=== PATIENT | male | born 1970 | race African-American/Black ===

== ENCOUNTER 2024-04-06 19:47 | Emergency (ER) | payer OTHER ==
[~2024-04-06] VITALS: Ht 180.3 cm; Wt 95.0 kg
[2024-04-06 21:29] LABS: BASOPHILS % (AUTO) 0.5 % (0.0-2.0); EOSINOPHILS % (AUTO) 3.1 % (1.0-6.0); HEMATOCRIT 42.4 % (41-53); LYMPHOCYTES # (AUTO) 1.8 K/uL (1.0-4.8); LYMPHOCYTES % (AUTO) 18.1 % (22.0-44.0); MEAN CORPUSCULAR HEMOGLOBIN 29.7 pg (26.0-34.0); MEAN CORPUSCULAR HGB CONC 33.1 G/dL (31.0-37.0); MEAN CORPUSCULAR VOLUME 90 fL (80-100); MONOCYTES # (AUTO) 0.8 K/uL (0.1-1.0); MONOCYTES % (AUTO) 7.5 % (2.0-9.0); NEUTROPHILS # (AUTO) 7.2 K/uL (1.8-7.7); NEUTROPHILS % (AUTO) 70.8 % (40.0-70.0); PLATELET COUNT (AUTO) 281 K/uL (150-450); RED BLOOD CELL COUNT(AUTO) 4.72 MIL/uL (4.50-5.90); RED CELL DISTRIBUTION WIDTH 14.2 % (11.5-14.5); WHITE BLOOD COUNT (AUTO) 10.1 K/uL (4.5-11.0)
[2024-04-06 21:31] LABS: APPEARANCE,URINE CLEAR (CLEAR); BILIRUBIN,URINE NEGATIVE (NEGATIVE); COLOR,URINE LIGHT YELLOW (YELLOW); GLUCOSE, URINE (UA) NEGATIVE (NEGATIVE); KETONES,URINE NEGATIVE (NEGATIVE); LEUKOCYTE ESTERASE ,URINE NEGATIVE (NEGATIVE); NITRATE,URINE NEGATIVE (NEGATIVE); OCCULT BLOOD,URINE SMALL (NEGATIVE); PH,URINE 5.5 (5.0-8.0); PROTEIN,URINE NEGATIVE (NEGATIVE); SPECIFIC GRAVITIY, URINE 1.018 (1.003-1.030); UROBILINOGEN,URINE <=1.0 mg/dL (<=1.0)
[2024-04-06 21:39] LABS: ANION GAP 7 mmol/L (8-16); CALCIUM, TOTAL 9.4 mg/dL (8.8-10.5); CARBON DIOXIDE 30 mmol/L (22-29); CHLORIDE 102 mmol/L (98-107); CREATININE 0.94 mg/dL (0.60-1.30); GLOMERULAR FILTR. RATE CALC > 60 mL/min (>60); GLUCOSE,RANDOM 94 mg/dL (70-110); POTASSIUM 3.5 mmol/L (3.5-5.1); SODIUM SERUM 139 mmol/L (136-145); UREA NITROGEN, BLOOD 9 mg/dL (7-18)
[2024-04-06 21:46] LABS: ALANINE AMINOTRANSFERASE 25 U/L (12-78); ALBUMIN 3.6 g/dL (3.4-5.0); ALKALINE PHOSPHATASE 63 U/L (46-116); ASPARTATE AMINOTRANSFERASE 21 U/L (15-37); BILIRUBIN,TOTAL 0.5 mg/dL (0.1-1.0); LIPASE 88 U/L (16-77); TOTAL PROTEIN, SERUM 6.9 g/dL (6.4-8.2)
[2024-04-06 22:05] LABS: BACTERIA,URINE Few /HPF (None Seen); MUCUS,URINE Few LPF (None Seen); RBC,URINE 0-2 /HPF (0-2); SQUAMOUS EPITHELIAL CELL,UR Few /LPF (None Seen); WBC,URINE 0-2 /HPF (0-5)
[2024-04-06] MEDS ORDERED: KETOROLAC TROMETHAMINE 30 MG/ML VIAL IVP ONE (22:30)
[2024-04-06] MEDS: FAMOTIDINE 20 MG/2 ML VIAL IVP ONE (23:32)
[2024-04-06] MEDS: SODIUM CHLORIDE 0.9% 1,000 ML IV ONE (23:32)
[2024-04-06] MEDS: KETOROLAC TROMETHAMINE 15 MG/ML VIAL IVP ONE (23:32)
[2024-04-06] MEDS: ONDANSETRON HCL 4 MG/2 ML VIAL IVP ONE (23:33)
[2024-04-06] MEDS ORDERED: IOHEXOL 350 MG/ML 100 ML VIAL ONE (23:56)
[2024-04-06] MEDS ORDERED: SODIUM CHLORIDE 0.9% 100 ML ONE ×2 (23:56)
[2024-04-07 02:18] VITALS: BP 154/89; PULSE 65; RESP 18; TEMP 97.9; O2SAT 98
== END 2024-04-07 02:23 | disposition home or self-care (01) ==
LOC: EMS 19:47
DX: R10.84 Generalized abdominal pain (principal); R11.2 Nausea with vomiting, unspecified; F17.210 Nicotine dependence, cigarettes, uncomplicated
CPT/HCPCS: 99285; 96374; 96375; 96361; 80048; 80076; 81001; 83690; 85025; 36415; 74177; Q9967; J3490; J1885; J2405; J7030; J7050

== ENCOUNTER 2024-04-21 02:31 | Emergency (ER) | payer OTHER ==
[~2024-04-21] VITALS: Ht 180.3 cm; Wt 94.5 kg
[2024-04-21 02:54] VITALS: TEMP 98.1
[2024-04-21 04:05] VITALS: BP 131/71; PULSE 84; RESP 18; O2SAT 96
[2024-04-21] MEDS ORDERED: ACET-66 PO (04:32)
[2024-04-21] MEDS ORDERED: METH-659 PO (04:32)
[2024-04-21] MEDS ORDERED: GABA-1181 PO (04:32)
[2024-04-21] MEDS ORDERED: IBUP-1554 PO (04:32)
[2024-04-21] MEDS ORDERED: LIDO700A15 TP (04:32)
[2024-04-21] MEDS: ACETAMINOPHEN 500 MG TABLET PO ONE (04:57)
[2024-04-21] MEDS: IBUPROFEN 600 MG TABLET PO ONE (04:58)
[2024-04-21] MEDS: METHOCARBAMOL 500 MG TABLET PO ONE (04:58)
== END 2024-04-21 05:14 | disposition home or self-care (01) ==
LOC: EMS 02:31
DX: G89.29 Other chronic pain (principal); M54.50 Low back pain, unspecified; F17.210 Nicotine dependence, cigarettes, uncomplicated
CPT/HCPCS: 99284; Z7502; Z7610